=== PATIENT | female | born 1955 | race Caucasian/White ===

== ENCOUNTER → 2017-04-14 | Outpatient (CLI) | payer BC ==
--- NOTE | 2017-04-17 08:08 | MM ---
Reason for exam: screening (asymptomatic). Last mammogram was performed 2 years and 2 months ago. History: Patient is postmenopausal. Family history of breast cancer in sister at age 66. Physical Findings: A clinical breast exam by your physician is recommended on an annual basis and results should be correlated with mammographic findings. MG Screening Mammo w CAD Bilateral CC, MLO, and XCCL view(s) were taken. Prior study comparison: February 17, 2015, bilateral MG screening mammo w CAD. September 05, 2012, bilateral digital screening mammo w/CAD. There are scattered fibroglandular densities. There is no discrete abnormality. No significant changes when compared with prior studies. ASSESSMENT: Negative, BI-RAD 1 RECOMMENDATION: Routine screening mammogram of both breasts in 1 year.
== END | disposition home or self-care (01) ==
LOC: RADMAMWWP 10:05
PROVIDERS: ATTEND Internal Medicine
DX: Z12.31 Encounter for screening mammogram for malignant neoplasm of breast (principal)
CPT/HCPCS: 77067

== ENCOUNTER → 2018-06-15 | Outpatient (CLI) | payer MEDICARE ==
--- NOTE | 2018-06-17 10:20 | MM ---
Reason for exam: screening (asymptomatic). Last mammogram was performed 1 year and 2 months ago. History: Patient is postmenopausal. Family history of breast cancer in sister at age 66. Physical Findings: A clinical breast exam by your physician is recommended on an annual basis and results should be correlated with mammographic findings. MG 3D Screening Mammo W/Cad Bilateral CC, MLO, and XCCL view(s) were taken. Prior study comparison: April 14, 2017, bilateral MG screening mammo w CAD. February 17, 2015, bilateral MG screening mammo w CAD. There are scattered fibroglandular densities. No significant changes when compared with prior studies. ASSESSMENT: Benign, BI-RAD 2 RECOMMENDATION: Routine screening mammogram of both breasts in 1 year.
== END | disposition home or self-care (01) ==
LOC: RADMAMWWP 09:37
PROVIDERS: ATTEND Internal Medicine
DX: Z12.31 Encounter for screening mammogram for malignant neoplasm of breast (principal)
CPT/HCPCS: 77063; 77067

== ENCOUNTER 2018-09-30 16:35 | Emergency (ER) | payer MEDICARE ==
[2018-09-30 17:09] VITALS: RESP 18
--- NOTE | 2018-09-30 17:47 | XR ---
EXAMINATION TYPE: XR knee complete RT DATE OF EXAM: 09/30/2018 CLINICAL HISTORY: Pain after hearing a popping injury. TECHNIQUE: Three views of the right knee are obtained. COMPARISON: Right knee x-ray August 07, 2011. FINDINGS: There is no acute fracture/dislocation evident in right knee. There is moderate to advance d tricompartment degenerative change with narrowing and spurring most prominent patellofemoral compar tment. There is progression from 2012 study noted. Osseous Loose body within joint space suprapatella r region is now noted. The overlying soft tissue appears unremarkable. IMPRESSION: There is no acute fracture or dislocation in the right knee.
[2018-09-30] MEDS ORDERED: HYDROcodone/APAP 7.5-325MG 1 EACH TAB PO ONE (18:56)
--- NOTE | 2018-09-30 19:22 | US ---
EXAMINATION TYPE: US venous doppler duplex LE RT DATE OF EXAM: 09/30/2018 7:09 PM COMPARISON: NONE CLINICAL HISTORY: posterior knee pain. Patient heard rt knee popping sound upon upright/weight bearin g position from reclining chair position; right knee pain and unable to extend right leg without pain . SIDE PERFORMED: Right TECHNIQUE: The lower extremity deep venous system is examined utilizing real time linear array sonog nathan with graded compression, doppler sonography and color-flow sonography. VESSELS IMAGED: Common Femoral Vein Deep Femoral Vein Greater Saphenous Vein * Femoral Vein Popliteal Vein Small Saphenous Vein * Proximal Calf Veins (* superficial vessels) Right Leg: Negative for DVT. Right popliteal Fossa complex fluid collection is noted midline = 3.7 x 2.0 x 0.7cm and another complex fluid collection is seen lateral right knee = 4.2 x 4.4 x 0.5cm. Grayscale, color doppler, spectral doppler imaging performed of the deep veins of the right lower ext remity. There is normal flow, compressibility, vascular waveforms. IMPRESSION: No ultrasound evidence for acute DVT in the right lower extremity. There is small poplit eal cyst. There is additional thin-walled fluid collection laterally possible bursitis.
[2018-09-30] MEDS ORDERED: ACET/COD 300 MG/30 MG STARTER PACK 6 TAB BTL PO STA (19:43)
--- NOTE | 2018-09-30 19:54 | ED ---
Lower Extremity Injury HPI - General Chief Complaint: Extremity Injury, Lower Stated Complaint: rt knee pain Time Seen by Provider: 09/30/18 17:13 Source: patient Mode of arrival: ambulatory Limitations: no limitations - History of Present Illness Initial Comments: 63-year-old female presenting today for chief complaint of right posterior knee pain. Patient states today when she was napping she got up from a recliner and felt a pop in the right posterior knee. Patient states he felt similar to when she had a popliteal cyst in the past. Patient states she had pain with ranging of the knee, mostly of the posterior aspect. She is she was able to weight-bear however any movement increases the pain. Patient denies any swelling redness fever chills night sweats or Flick symptoms. Patient denies noticing pain before attempted to get out of the recliner. Patient denies dislocation. Remaining review of systems negative upon arrival patient appears well however uncomfortable knees bent. VS within acceptable limits. - Related Data Allergies Allergy/AdvReac Type Severity Reaction Status Date / Time No Known Allergies Allergy Verified 09/30/18 17:09 Review of Systems ROS Statement: Those systems with pertinent positive or pertinent negative responses have been documented in the HPI. ROS Other: All systems not noted in ROS Statement are negative. Past Medical History Past Medical History: Diabetes Mellitus History of Any Multi-Drug Resistant Organisms: None Reported Past Surgical History: Tonsillectomy Additional Past Surgical History / Comment(s): carpal tunnel Past Psychological History: No Psychological Hx Reported Smoking Status: Never smoker Past Alcohol Use History: None Reported Past Drug Use History: None Reported General Exam - General Exam Comments Initial Comments: General: The patient is awake and alert, in no distress, and does not appear acutely ill. Eye: Pupils are equal, round and reactive to light, extra-ocular movements are intact. No nystagmus. There is normal conjunctiva bilaterally. No signs of icterus. Ears, nose, mouth and throat: There are moist mucous membranes and no oral lesions. Neck: The neck is supple, there is no tenderness or JVD. Cardiovascular: There is a regular rate and rhythm. No murmur, rub or gallop is appreciated. Respiratory: Lungs are clear to auscultation, respirations are non-labored, breath sounds are equal. No wheezes, stridor, rales, or rhonchi. Musculoskeletal: Patiet able to range at both extremities however with full extension and flexion of the right knee patient has signficiant comfort this By pain to palpation of the popliteal fossa. No obvious soft tissue swelling of the right leg as compared to the left. No redness. Extensor mechanism instact. Strength 5/5. Sensation intact both proximal and distal to site of pain. DP pulses equal bilaterally 2+. Neurological: A&O x 3. CN II-XII intact, There are no obvious motor or sensory deficits. Coordination appears grossly intact. Speech is normal. Skin: Skin is warm and dry and no rashes or lesions are noted. Psychiatric: Cooperative, appropriate mood & affect, normal judgment. Limitations: no limitations Course Vital Signs 09/30/18 09/30/18 17:06 20:12 Temperature 98.3 F 97.9 F Pulse Rate 69 83 Respiratory 18 18 Rate Blood Pressure 134/73 139/85 O2 Sat by Pulse 99 99 Oximetry Medical Decision Making - Medical Decision Making This a pleasant 63-year-old female history of Nelson's cyst presenting today for chief complaint posterior right knee pain. Began today. No evidence of soft tissue swelling redness however there is pain to palpation of the popliteal fossa. Ultrasound revealed a blood clot however there was cyst noted in the popliteal fossa as well as possible bursitis. Patient has no erythema warmth of the knee. Symptoms began today no evidence of significant swelling of the knee I feel patient most likely has a Nelson's cyst causing the pain. Patient will be discharged with orthopedic surgery follow-up. Return parameters including increasing swelling or redness or flank symptoms were immediately return to emergency department. Patient verbalizes understanding. Patient was discharged appearing well with starter pack for Tylenol No. 3 for pain management. I did discuss the case by attending provider Dr. August prior to discharge. Disposition Clinical Impression: Posterior right knee pain, Nelson cyst Disposition: HOME SELF-CARE Instructions (If sedation given, give patient instructions): Bakers Cyst (ED) Additional Instructions: Please use medication as discussed. Please follow-up with orthopedic surgery within next week. Please return to emergency room if the symptoms increase or worsen or for any other concerns, fever, redness, swelling of knee, flu like symptoms. Is patient prescribed a controlled substance at d/c from ED?: No Referrals: Hansa Prince MD [Primary Care Provider] - 1-2 days Kiel Londono MD [STAFF PHYSICIAN] - 1-2 days Time of Disposition: 19:53
[2018-09-30 20:14] VITALS: BP 139/85; PULSE 83; TEMP 97.9
== END 2018-09-30 20:13 | disposition home or self-care (01) ==
LOC: EC 16:35
DX: M71.21 Synovial cyst of popliteal space [Baker], right knee (principal)
CPT/HCPCS: 99284

== ENCOUNTER 2021-04-05 10:03 | Emergency (ER) | payer MEDICARE, OTHER ==
[2021-04-05 10:18] VITALS: TEMP 98.4
[2021-04-05] MEDS ORDERED: MORPHINE SULFATE 4 MG/ML SYRINGE IM STA (10:33)
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
--- NOTE | 2021-04-05 11:07 | XR ---
EXAMINATION TYPE: XR chest 2V DATE OF EXAM: 04/05/2021 COMPARISON: NONE TECHNIQUE: PA and lateral views submitted. HISTORY: Cough FINDINGS: The lungs are clear and there is no pneumothorax, pleural effusion, or focal pneumonia. Hypertrophi c and degenerative changes of the spine. IMPRESSION: 1. No acute process.
--- NOTE | 2021-04-05 11:09 | XR ---
EXAMINATION TYPE: XR pelvis AP view DATE OF EXAM: 04/05/2021 COMPARISON: NONE HISTORY: Pain The osseous structures are intact and the joint spaces are preserved. No acute fracture is seen. Vi sualized bowel gas pattern is nonspecific. Surgical clips overlying the left hip. Arthropathy of the hip joints. Degenerative change lower lumbar spine. Calcifications in the pelvis likely vascular. Sc lerosis involving the left femoral head IMPRESSION: 1. No acute fracture.
--- NOTE | 2021-04-05 11:10 | XR ---
EXAMINATION TYPE: XR sacrum coccyx DATE OF EXAM: 04/05/2021 COMPARISON: NONE HISTORY: Pain Three views are submitted. Sacrum is intact. SI joints are symmetric with mild hypertrophic arthrop athy. Sacral foramina are patent. Degenerative change lower lumbar spine. Coccyx appears to be intac t. Visualized pelvic structures intact. Calcifications in the pelvis likely vascular. Grade 1 anter olisthesis L5 on S1. IMPRESSION: 1. No acute fracture. 2. Severe degenerative change lower lumbar spine with grade 1 anterolisthesis L5 on S1. Multilevel fa cet arthropathy.
[2021-04-05 12:09] VITALS: RESP 18
[2021-04-05 12:11] VITALS: BP 149/82; PULSE 69
== END 2021-04-05 12:08 | disposition home or self-care (01) ==
LOC: EC 10:03
DX: R07.89 Other chest pain (principal); E11.9 Type 2 diabetes mellitus without complications
CPT/HCPCS: 99285; 96372; 72170; 72220; 71046; J2270

== ENCOUNTER 2021-08-21 08:49 | Emergency (ER) | payer MEDICARE ==
[2021-08-21 09:02] VITALS: RESP 16
--- NOTE | 2021-08-21 09:23 | ED ---
General Adult HPI - General Chief complaint: Extremity Injury, Lower Stated complaint: R Leg pain/requesting Xray Time Seen by Provider: 08/21/21 08:52 Source: patient Mode of arrival: wheelchair Limitations: no limitations - History of Present Illness Initial comments: Dictation was produced using [employer] dictation software. please excuse any gramm atical, word or spelling errors. Chief Complaint: 66-year-old female presents emergency department for right knee pain History of Present Illness: 66-year-old female presents emergency Department with lateral knee pain. Patient yesterday was taken out her dogs. Her 2 dogs were wrestling when one of the dogs ran into the lateral portion of her right knee. Patient states she rates pain. Patient here today requesting x-ray. It is still ambulatory. She is walking around with a limp. Denies any distal foot or ankle issues. The ROS documented in this emergency department record has been reviewed and confirmed by me. Those systems with pertinent positive or negative responses have been documented in the HPI. All other systems are other negative and/or noncontributory. PHYSICAL EXAM: General Impression: Alert and oriented x3, not in acute distress HEENT: Normocephalic atraumatic, extra-ocular movements intact, pupils equal and reactive to light bilaterally, mucous membranes moist. Cardiovascular: Heart regular rate and rhythm Chest: Able to complete full sentences, no retractions, no tachypnea Musculoskeletal: Pulses present and equal in all extremities, no peripheral edema Right knee: Mild ecchymoses to the suprapubic lateral patellar region, very mild swelling in the infrapatellar space Motor: no focal deficits noted Neurological: CN II-XII grossly intact, no focal motor or sensory deficits noted Skin: Intact with no visualized rashes Psych: Normal affect and mood ED course: 66-year-old female presents to the emergency department for right knee contusion. Vital Signs upon arrival are within acceptable limits. X-rays unremarkable. There does appear to be moderate to marked osteoarthritis no other compartments of the knee. Patient discharged advised follow-up with primary care doctor. - Related Data Home Medications Medication Instructions Recorded Confirmed Ascorbic Acid [Vitamin C] 1,000 mg PO BID 04/17/21 04/17/21 Aspirin EC [Ecotrin Low Dose] 81 mg PO HS 04/17/21 04/17/21 Atorvastatin [Lipitor] 40 mg PO HS 04/17/21 04/17/21 Calcium Carbonate/Vitamin D3 1 cap PO BID 04/17/21 04/17/21 [Calcium 600-Vit D3 12.5 Mcg (500 Iu)] Cetirizine HCl 10 mg PO DAILY 04/17/21 04/17/21 Cholecalciferol [Vitamin D3 (25 50 mcg PO BID 04/17/21 04/17/21 Mcg = 1000 Iu)] Cranberry Fruit Extract [Cranberry] 200 mg PO BID 04/17/21 04/17/21 Dapagliflozin Propanediol [Farxiga] 10 mg PO HS 04/17/21 04/17/21 Escitalopram [Lexapro] 5 mg PO DAILY 04/17/21 04/17/21 L.acidoph,Paracasei, B.lactis 1 cap PO DAILY 04/17/21 04/17/21 [Probiotic] Magnesium 200 mg PO BID 04/17/21 04/17/21 Nystatin 100,000Unit/gm Cream 1 applic TOPICAL BID 04/17/21 04/17/21 [Mycostatin Cream] Pioglitazone [Actos] 45 mg PO HS 04/17/21 04/17/21 Vitamin B Complex 1 cap PO BID 04/17/21 04/17/21 Zinc Gluconate [Zinc] 50 mg PO BID 04/17/21 04/17/21 lisinopriL [Zestril] 5 mg PO DAILY 04/17/21 04/17/21 Previous Rx's Medication Instructions Recorded Acetaminophen Tab [Tylenol] 1,000 mg PO Q6HR PRN tab 04/22/21 Cefuroxime Axetil [Ceftin] 500 mg PO BID 3 Days #6 tab 04/22/21 Allergies Allergy/AdvReac Type Severity Reaction Status Date / Time No Known Allergies Allergy Verified 08/21/21 09:00 Review of Systems ROS Statement: Those systems with pertinent positive or pertinent negative responses have been documented in the HPI. ROS Other: All systems not noted in ROS Statement are negative. Past Medical History Past Medical History: Diabetes Mellitus, Osteoarthritis (OA) History of Any Multi-Drug Resistant Organisms: None Reported Past Surgical History: Tonsillectomy Additional Past Surgical History / Comment(s): carpal tunnel varicose vein surgeries Past Anesthesia/Blood Transfusion Reactions: No Reported Reaction Past Psychological History: No Psychological Hx Reported Smoking Status: Never smoker Past Alcohol Use History: None Reported Past Drug Use History: None Reported General Exam Limitations: no limitations Course Vital Signs 08/21/21 09:00 Temperature 98.5 F Pulse Rate 92 Respiratory 16 Rate Blood Pressure 133/74 O2 Sat by Pulse 99 Oximetry Disposition Clinical Impression: Knee strain Disposition: HOME SELF-CARE Condition: Good Instructions (If sedation given, give patient instructions): Knee Pain (ED) Is patient prescribed a controlled substance at d/c from ED?: No Referrals: Jared Lopez MD [Primary Care Provider] - 1-2 days Time of Disposition: 10:11
--- NOTE | 2021-08-21 09:53 | XR ---
Right knee. HISTORY: Pain following trauma. COMPARISON: 09/30/2018. TECHNIQUE: 3 views the right knee were obtained FINDINGS: There is no acute fracture or dislocation. The osseous structures are mildly osteopenic. There is severe osteoarthritic change of the patellofemoral compartment with near complete loss of th e joint space and marked hypertrophic spurring. There is soft tissue calcification in the quadriceps tendon. There is moderate osteoarthritic change of the medial and lateral compartments of the knee with mild to moderate joint space narrowing and moderate marginal hypertrophic spurring. There is no focal intraosseous abnormality. IMPRESSION: 1. No evidence of acute trauma. 2. Moderate to marked osteoarthritis of all 3 compartments of the knee. These findings were present o n the prior study dated 09/30/2018
[2021-08-21 10:23] VITALS: BP 139/78; PULSE 78; TEMP 98.2
== END 2021-08-21 10:22 | disposition home or self-care (01) ==
LOC: EC 08:49
DX: S83.91XA Sprain of unspecified site of right knee, initial encounter (principal); R52 Pain, unspecified; E11.9 Type 2 diabetes mellitus without complications; W54.1XXA Struck by dog, initial encounter; Y93.01 Activity, walking, marching and hiking
CPT/HCPCS: 99283

== ENCOUNTER 2022-05-29 06:46 | Day surgery (SDC) | payer MEDICARE ==
[2022-05-23 11:22] VITALS: BMI 35.4
[~2022-05-29 06:46] MED LIST: GENTAMICIN 400 MG in SODIUM CHLORIDE 0.9% 100 ML IVPB PRN
[2022-05-29] MEDS ORDERED: METOCLOPRAMIDE 5 MG/ML 2 ML VIAL IVP PRN (07:35)
[2022-05-29] MEDS ORDERED: HYDROmorphone 0.5 MG/0.5 ML SYRINGE IVP PRN (07:35)
[2022-05-29] MEDS ORDERED: LIDOCAINE 1% (10MG/ML) FOR IV START INTRADERMA PRN (07:35)
[2022-05-29] MEDS ORDERED: DEXAMETHASONE SOD PHOSPHATE 4 MG/ML 1 ML VIAL IV ONE (07:35)
[2022-05-29] MEDS ORDERED: ONDANSETRON 4 MG/2 ML VIAL IVP ONE (07:35)
[2022-05-29 07:55] VITALS: RESP 16
[2022-05-29] MEDS: LACTATED RINGERS 1,000 ML IV SCH ×2 (07:55→13:28)
[2022-05-29 08:06] LABS: Glucose,Whole Blood 208 mg/dL (70-110)
[2022-05-29] MEDS ORDERED: INSULIN ASPART (NovoLOG) 100 UNIT/ML VIAL SQ ONE ×2 (08:14→11:19)
--- NOTE | 2022-05-29 08:58 | P.HPOB ---
History of Present Illness H&P Date: 05/29/22 Chief Complaint: Cystocele This is a 66-year-old that presents with complaints of increasing pelvic pressure. Patient states she notices a bulge when showering, this started about one year ago. Patient at the time had a noted grade 2 cystocele. Patient had been counseled on pessary options but she declined at that time as she didn't feel her symptoms were that bad. Patient presents now with complaints of increasing bulge and urinary urgency. The bulge she feels as a buccal ball in size. She does note symptoms increased by standing with straining. And relieved by laying down. Patient notes normal bowel movements. Patient is interested in surgical repair of cystocele. She declined pessary treatment once again. Review of Systems Constitutional: Denies chills, Denies fatigue, Denies fever Ears, nose, mouth and throat: Denies headache Cardiovascular: Denies leg edema Respiratory: Denies dyspnea Gastrointestinal: Denies constipation, Denies diarrhea Genitourinary: Reports urge incontinence, Reports urgency Menstruation: Reports postmenopausal Past Medical History Past Medical History: Diabetes Mellitus, Hyperlipidemia, Osteoarthritis (OA) Additional Past Medical History / Comment(s): PROLAPSED BLADDER History of Any Multi-Drug Resistant Organisms: None Reported Past Surgical History: Tonsillectomy Additional Past Surgical History / Comment(s): carpal tunnel, varicose vein surgeries, COLONOSCOPY Past Anesthesia/Blood Transfusion Reactions: No Reported Reaction Smoking Status: Never smoker - Past Family History Sister(s) Family Medical History: Cancer Medications and Allergies Home Medications Medication Instructions Recorded Confirmed Type Atorvastatin [Lipitor] 40 mg PO HS 04/17/21 05/29/22 History Allergies Allergy/AdvReac Type Severity Reaction Status Date / Time No Known Allergies Allergy Verified 05/29/22 07:44 Exam Osteopathic Statement: *. No significant issues noted on an osteopathic structural exam other than those noted in the History and Physical/Consult. 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 External genitalia is normal for age with no lesions appreciated. Vaginal vault is without defect and post menopausal in nature. Cystocele is present increased descent with also evidence appreciated. Grade 4 in nature. Cervix is appreciated without lesion. No adnexal masses are appreciated. Results Abnormal Lab Results - Last 24 Hours (Table) 05/29/22 Range/Units 08:04 POC Glucose (mg/dL) 208 H (70-110) mg/dL Assessment and Plan (1) Cystocele Current Visit: Yes Status: Acute Code(s): [id number] - SNOMED Code(s): 793172173 Plan: 66-year-old female that presents for anterior colporrhaphy. Patient has had no history of cystocele increasing symptoms over the last year. Patient was counseled on nonsurgical pessary versus surgical repair. Patient wishes surgical repair. We will plan on anterior colporrhaphy.
[2022-05-29] MEDS ORDERED: LIDOCAINE 2% INJ 20 MG/ML (2 ML VIAL) ONE (09:31)
[2022-05-29] MEDS ORDERED: PROPOFOL 10 MG/ML 20 ML VIAL IV ONE (09:31)
[2022-05-29] MEDS ORDERED: fentaNYL (PF) 50 MCG/ML 2 ML AMP ONE (09:31)
[2022-05-29] MEDS ORDERED: SUCCINYLCHOLINE CHLORIDE 200 MG/10 ML VIAL IV ONE (09:31)
[2022-05-29] MEDS ORDERED: VASOPRESSIN 20 UNIT in SODIUM CHLORIDE 0.9% 60 ML IV ONE (09:55)
[2022-05-29] MEDS ORDERED: BACITRACIN ZINC 500 UNIT/GM OINT 28.4 GM TUBE TOPICAL ONE (10:17)
[2022-05-29] MEDS ORDERED: Acetaminophen-Codeine 300-30mg TAB PO PRN ×2 (10:30)
[2022-05-29] MEDS ORDERED: SIMETHICONE 80 MG CHEWABLE PO PRN (10:30)
[2022-05-29] MEDS ORDERED: IBUPROFEN 600 MG TAB PO PRN (10:30)
--- NOTE | 2022-05-29 10:37 | P.OP ---
Date of Procedure: 05/29/22 Preoperative Diagnosis: Cystocele Postoperative Diagnosis: Same Procedure(s) Performed: Anterior colporrhaphy Anesthesia: GETA Surgeon: Felecia Barraza Estimated Blood Loss (ml): 25 IV fluids (ml): 600 Urine output (ml): 200 (Clear yellow) Pathology: none sent Condition: stable Disposition: PACU Indications for Procedure: Increasing discomfort with pelvic pressure and cystocele. Operative Findings: Grade 4 cystocele Description of Procedure: Patient was taken back to the operating suite where general anesthesia was obtained without difficulty by the anesthesia department. She was prepped and draped in the normal sterile fashion in the dorsal lithotomy position. I Ramsey catheter was used to drain the bladder for approximately 200 mL of clear yellow urine. Exam under and any anesthesia revealed a grade 4 cystocele. A grade 2 uterine procidentia was noted in addition. A weighted speculum was placed in the posterior vaginal vault, dilute vasopressin was infiltrated under the anterior vaginal mucosa in the midline. A small incision is made in the vaginal mucosa just above the cervix with the Metzenbaum scissors to dissect the mucosa off of the cystocele and transected the vaginal Allison the midline. The cut edges were then held and splayed laterally with Allis clamps. The bladder was then dissected along the lateral edges with a combination of sharp and blunt dissection exposing the vesicovaginal space. A series of 2-0 Vicryl interrupted sutures were then placed sequentially along the lateral folds of the vesicovaginal space and brought together to tuck the bladder back while simultaneously bringing the lateral vaginal tissues together. The excess vaginal mucosa was then trimmed the vaginal mucosa was then closed with a running 2-0 Vicryl suture. A Cervantes catheter was placed clear yellow urine was noted with no difficulty and placement. Vaginal packing was then placed, all counts were noted to be correct 2. Patient tolerated procedure well and was taken the recovery room awake in stable condition.
[2022-05-29] MEDS ORDERED: ACETAMINOPHEN IV (For NPO) 1,000 MG in EMPTY BAG 1 BAG IVPB ONE (11:00)
[2022-05-29] MEDS: KETOROLAC 15 MG/ML 1 ML VIAL IVP PRN ×2 (11:03→21:07)
[2022-05-29] MEDS ORDERED: LABETALOL 5 MG/ML VIAL MDV IV ONE (11:24)
[2022-05-29 11:47] LABS: Glucose,Whole Blood 201 mg/dL (70-110)
[2022-05-29] MEDS: SENNOSIDES-DOCUSATE SODIUM 1 EACH TAB PO SCH (21:09)
[2022-05-29] MEDS: NITROFURANTOIN MONOHYD/M-CRYST 100 MG CAP PO SCH (21:16)
[2022-05-30 01:04] VITALS: TEMP 98.5
[2022-05-30] MEDS: LACTATED RINGERS 1,000 ML IV SCH (04:30)
[2022-05-30] MEDS: KETOROLAC 15 MG/ML 1 ML VIAL IVP PRN (05:11)
--- NOTE | 2022-05-30 07:33 | P.DS ---
Providers Date of admission: 05/29/2022 Expected date of discharge: 05/30/22 Attending physician: Felecia Barraza Primary care physician: Jared Lopez - Discharge Diagnosis(es) (1) Cystocele Current Visit: Yes Status: Acute (2) S/P anterior colporrhaphy Current Visit: Yes Status: Acute Hospital Course: 58-year-old female that presented yesterday for scheduled anterior colporrhaphy. Patient had symptomatic cystocele that had been followed over the last year. Patient failed outpatient treatment with pessary. Patient was desirous of surgical repair with anterior colporrhaphy. For full details on this patient please see the dictated history and physical. Patient was taken back to the operating suite where anterior colporrhaphy was performed without difficulty. For full details on the surgery please see the operative report. Patient's pot postoperative course has been uneventful. On this postoperative day #1 she is ambulating without difficulty, we are awaiting a spontaneous void prior to discharge. She denies bleeding she states pain is well-controlled. She denies nausea or vomiting. Patient Condition at Discharge: Good Plan - Discharge Summary Discharge Rx Participant: Yes New Discharge Prescriptions: No Action Atorvastatin [Lipitor] 40 mg PO HS Discharge Medication List Atorvastatin [Lipitor] 40 mg PO HS 04/17/21 [History] Follow up Appointment(s)/Referral(s): Felecia Barraza DO [Doctor of Osteopathic Medicine] - 2 Weeks Patient Instructions/Handouts: Anterior Vaginal Repair (DC), Anterior Vaginal Repair (GEN) Activity/Diet/Wound Care/Special Instructions: lifting restrictions are reviewed with patient, nothing heavier than a gallon of milk. Bowel health is discussed, she states she has a routine for bowel health that she follows at night. [id number] ibuprofen and Tylenol as needed for pain. Routine follow-up in 2 weeks as discussed. Discharge Disposition: HOME SELF-CARE
[2022-05-30 07:43] LABS: Basophils % (A) 0 %; Eosinophils # (A) 0.1 k/uL (0-0.7); Eosinophils % (A) 1 %; HCT 40.9 % (34.0-46.0); HGB 13.8 gm/dL (11.4-16.0); Lymphocytes # (A) 0.9 k/uL (1.0-4.8); Lymphocytes % (A) 9 %; MCH 31.3 pg (25.0-35.0); MCHC 33.8 g/dL (31.0-37.0); MCV 92.7 fL (80.0-100.0); Mean Platelet Volume 7.5; Monocytes # (A) 0.5 k/uL (0-1.0); Monocytes % (A) 5 %; Neutrophils # (A) 8.6 k/uL (1.3-7.7); Neutrophils % (A) 84 %; Platelet Count 165 k/uL (150-450); RBC 4.41 m/uL (3.80-5.40); RDW 13.2 % (11.5-15.5); WBC 10.3 k/uL (3.8-10.6)
[2022-05-30] MEDS: SENNOSIDES-DOCUSATE SODIUM 1 EACH TAB PO SCH (07:57)
[2022-05-30 09:39] VITALS: BP 128/75; PULSE 63
[2022-05-30] MEDS: NITROFURANTOIN MONOHYD/M-CRYST 100 MG CAP PO SCH (09:47)
[2022-05-30] MEDS ORDERED: ACETAMINOPHEN TAB 325 MG TAB PO PRN (10:32)
== END 2022-05-30 10:45 | disposition home or self-care (01) ==
LOC: OR 06:46 → 4FBP 10:22 → OR 05-30 10:45
PROVIDERS: ATTEND Obstetrics & Gynecology Obstetrics
DX: N81.10 Cystocele, unspecified (principal); E11.9 Type 2 diabetes mellitus without complications; E78.5 Hyperlipidemia, unspecified
CPT/HCPCS: 85025; 57240; J1100; J2405; J1580; J0131; J1885 ×2; 86850; 86900; 86901